=== PATIENT | female | born 1990 | race Caucasian/White ===

== ENCOUNTER → 2016-03-28 | Outpatient (CLI) | payer BC | END | disposition home or self-care (01) | LOC: C.PAPS 10:38 | PROVIDERS: ATTEND Obstetrics & Gynecology | DX: Z01.419 Encounter for gynecological examination (general) (routine) without abnormal findings (principal) ==

== ENCOUNTER → 2016-04-13 | Outpatient (CLI) | payer BC ==
--- NOTE | 2016-04-13 14:23 | DIAGNOSTIC IMAGING REPORT ---
Limited ultrasound <14 WKS SINGLE CLINICAL HISTORY: THREATENED ,CRAMPING/6WKS PG pain. Cramping. TECHNIQUE: Ultrasound COMPARISON STUDY: None FINDINGS: Uterus measures 7.8 cm in maximum dimension. No intrauterine is identified. Gestational sac measurements approximate a of 5 weeks 4 days. Patient declined transvaginal evaluation. Although a yolk sac is identified, a definite pole containing a Jorge could not be confirmed. This may be secondary to the very early gestational age. Right ovary contains a 3.6 cm corpus luteum cyst. The left ovary measures 3.5 cm. Vascular flow is confirmed bilaterally. IMPRESSION: 1. Intrauterine gestational sac with an estimated gestational age of approximately 5 weeks 4 days. 2. A heart beat could not be confirmed, although this may be secondary to the early gestational age. 3. A repeat study in 7-10 days is recommended to confirm viability. 4. 3.6 cm corpus luteum cyst right ovary Electronically signed by: Fernando Garcia M.D. 04/13/2016 2:22 PM Dictated Date/Time: 04/13/2016 2:14 PM
== END | disposition home or self-care (01) ==
LOC: C.ULTR 13:42
PROVIDERS: ATTEND Obstetrics & Gynecology
DX: O20.0 Threatened abortion (principal); Z3A.00 Weeks of gestation of pregnancy not specified; N83.201 Unspecified ovarian cyst, right side

== ENCOUNTER → 2016-05-16 | Outpatient (CLI) | payer BC ==
[2016-05-16 16:50] LABS: BASO % 0.2 %; BASO ABS # 0.01 K/uL (0-0.2); COMPLETE YES; EOS % 0.5 %; HEMATOCRIT 35.4 % (37-47); IG% 0.2 %; LYMPH % 33.8 %; LYMPH ABS # 2.18 K/uL (1.2-3.4); MEAN CELL VOLUME 85.1 fL (80-100); MEAN CORPUSCULAR HEMOGLOBIN 28.8 pg (25-34); MEAN CORPUSCULAR HGB CONC 33.9 g/dl (32-36); MEAN PLATELET VOLUME 11.3 fL (7.4-10.4); MONO % 9.9 %; NEUT % 55.4 %; PLATELET COUNT 296 K/uL (130-400); RED BLOOD COUNT 4.16 M/uL (4.2-5.4); WHITE BLOOD COUNT 6.45 K/uL (4.8-10.8)
[2016-05-16 17:38] LABS: URINE APPEARANCE CLEAR (CLEAR); URINE BILIRUBIN NEG (NEG); URINE COLOR YELLOW; URINE EPITHELIAL CELL AUTO >30 /lpf (0-5); URINE NITRITE NEG (NEG); URINE SPECIFIC GRAVITY 1.017 (1.000-1.030); UROBILINOGEN NEG (NEG)
[2016-05-16 17:49] LABS: MANUAL MICROSCOPIC REQUIRED? NO; REVIEW REQ? NO
[2016-05-19 03:29] LABS: VARICELLA ZOS VIR IGG VALUE <0.91 INDEX
== END | disposition home or self-care (01) ==
LOC: C.LAB1850 15:54
PROVIDERS: ATTEND Obstetrics & Gynecology
DX: O09.299 Supervision of pregnancy with other poor reproductive or obstetric history, unspecified trimester (principal)

== ENCOUNTER → 2016-05-16 | Outpatient (CLI) | payer BC ==
[2016-05-19 01:46] LABS: CHLAMYDIA TRACH RNA*** NOT DETECTED (NOT DETECTED); GC (NEIS GONORRHOEAE)RNA** NOT DETECTED (NOT DETECTED)
== END ==
LOC: C.LABSPEC 17:31
PROVIDERS: ATTEND Obstetrics & Gynecology
DX: O09.299 Supervision of pregnancy with other poor reproductive or obstetric history, unspecified trimester (principal)

== ENCOUNTER → 2016-06-26 | Outpatient (CLI) | payer BC ==
[2016-06-26 18:06] LABS: GTGD 50 Grams
== END | disposition home or self-care (01) ==
LOC: C.LAB1850 16:13
PROVIDERS: ATTEND Obstetrics & Gynecology
DX: Z34.02 Encounter for supervision of normal first pregnancy, second trimester (principal)

== ENCOUNTER → 2016-09-25 | Outpatient (CLI) | payer BC ==
[2016-09-25 14:44] LABS: GTGD 50 Grams
[2016-09-25 14:45] LABS: HEMATOCRIT 33.2 % (37-47)
[2016-09-25 16:17] LABS: URINE APPEARANCE CLEAR (CLEAR); URINE BILIRUBIN NEG (NEG); URINE COLOR YELLOW; URINE EPITHELIAL CELL AUTO 20-30 /lpf (0-5); URINE NITRITE NEG (NEG); URINE PH 5.5 (4.5-7.5); URINE SPECIFIC GRAVITY 1.012 (1.000-1.030); UROBILINOGEN NEG (NEG)
[2016-09-25 16:21] LABS: MANUAL MICROSCOPIC REQUIRED? NO; REVIEW REQ? NO
== END | disposition home or self-care (01) ==
LOC: C.LAB1850 12:40
PROVIDERS: ATTEND Obstetrics & Gynecology
DX: O09.299 Supervision of pregnancy with other poor reproductive or obstetric history, unspecified trimester (principal); Z3A.00 Weeks of gestation of pregnancy not specified

== ENCOUNTER 2016-12-09 04:12 | Inpatient (IN) | payer BC ==
[~2016-12-09] VITALS: Ht 165.1 cm; Wt 85.0 kg
[2016-12-09] MEDS ORDERED: LACTATED RINGER'S 1000ML 1,000 ML IV PRN (04:18)
[2016-12-09] MEDS ORDERED: PENICILLIN G POTASSIUM IV 6 MU in DEXTROSE 5% 250ML 250 ML IV ONE (04:30)
[2016-12-09 04:58] LABS: HEMATOCRIT 33.6 % (37-47); MEAN CELL VOLUME 81.8 fL (80-100); MEAN CORPUSCULAR HEMOGLOBIN 26.8 pg (25-34); MEAN CORPUSCULAR HGB CONC 32.7 g/dl (32-36); MEAN PLATELET VOLUME 10.9 fL (7.4-10.4); PLATELET COUNT 246 K/uL (130-400); RED BLOOD COUNT 4.11 M/uL (4.2-5.4); WHITE BLOOD COUNT 12.92 K/uL (4.8-10.8)
[2016-12-09] MEDS ORDERED: BUPIVACAINE 0.25% 30 ML VIAL ONE (05:09)
[2016-12-09] MEDS ORDERED: EpHEDrine SULFATE INJ 50 MG/ML AMP ONE (05:09)
[2016-12-09] MEDS ORDERED: FENTANYL CITRATE INJ 50 MCG/1 ML 2 ML VIAL ONE (05:10)
[2016-12-09] MEDS ORDERED: FENTANYL 2MCG/ML ROPIV 1.25MG/ML 100ML BAG EPI ONE (05:10)
[2016-12-09] MEDS ORDERED: LACTATED RINGER'S 1000ML 500 ML IV PRN ×2 (06:02→12:55)
[2016-12-09] MEDS ORDERED: NALOXONE HCL INJ 1 MG in SODIUM CHLORIDE 0.9% 1000ML 1,000 ML IV PRN ×4 (06:02)
[2016-12-09] MEDS ORDERED: NALOXONE HCL INJ 0.4 MG/1 ML VIAL/CARP IV PRN (06:15)
[2016-12-09] MEDS ORDERED: ONDANSETRON INJ 2 MG/ML 2 ML VIAL IV PRN (06:15)
[2016-12-09] MEDS ORDERED: FENTANYL 2MCG/ML ROPIV 1.25MG/ML 100ML BAG EPI PRN (06:15)
[2016-12-09] MEDS ORDERED: DiphenhydrAMINE HCL 50 MG/ML VIAL IV PRN (06:15)
[2016-12-09] MEDS ORDERED: PROMETHAZINE HCL INJ 25 MG in SODIUM CHLORIDE 0.9% 50ML 50 ML IV PRN (06:15)
[2016-12-09] MEDS ORDERED: EpHEDrine SULFATE INJ 50 MG/ML AMP IV PRN (06:15)
[2016-12-09] MEDS ORDERED: NALBUPHINE HCL INJ 10 MG/ML AMP IV PRN (06:15)
[2016-12-09] MEDS: LACTATED RINGER'S 1000ML 1,000 ML IV SCH ×2 (06:42→13:25)
[2016-12-09 06:48] VITALS: Ht 165.1 cm; Wt 85.0 kg
[2016-12-09] MEDS: PENICILLIN G POTASSIUM IV 3 MU in DEXTROSE 5% 100ML 100 ML IV PRN ×2 (08:42→12:44)
[2016-12-09] MEDS ORDERED: OXYTOCIN 30 UNITS/500ML NSS IV PRN ×2 (13:00→15:15)
[2016-12-09] MEDS ORDERED: OXYTOCIN 30 UNITS/500ML NSS IV ONE (13:19)
[2016-12-09] MEDS ORDERED: DIPHTHERIA/TETANUS/PERTUSSIS 0.5 ML SYR/VIAL IM. ONE (15:15)
[2016-12-09] MEDS ORDERED: SUPERCREAM 0.870 % 15GM JAR EXT PRN (15:15)
[2016-12-09] MEDS ORDERED: BENZOCAINE 20% AER SPR 82.5 GM CAN EXT PRN (15:15)
[2016-12-09] MEDS ORDERED: ACETAMINOPHEN/CODEINE 300/30MG TAB PO PRN ×2 (15:15)
[2016-12-09] MEDS ORDERED: LANOLIN OINT EXT PRN ×2 (15:15)
[2016-12-09] MEDS ORDERED: OXYCODONE/ACETAMINOPHEN 5-325 TAB PO PRN (15:15)
[2016-12-09] MEDS ORDERED: ACETAMINOPHEN 325 MG TAB PO PRN (15:15)
[2016-12-09] MEDS ORDERED: HYDROCORTISONE ACETATE 25 MG SUPP PR PRN (15:15)
--- NOTE | 2016-12-09 17:10 | Anesthesia Procedure Note ---
Anesthesia Epidural Removal Nt Date & Time Dec 09, 2016 at 17:10 Vital Signs Pain Intensity: 0.0 Notes Mental Status: alert / awake / arousable, participated in evaluation Nausea / Vomiting: adequately controlled Pain: adequately controlled Airway Patency, RR, SpO2: stable & adequate BP & HR: stable & adequate Hydration State: stable & adequate Neuraxial Anesthesia: was administered Anesthetic Complications: no major complications apparent, pt satisfied with anesthetic care Epidural: removed without complications, with tip intact
--- NOTE | 2016-12-09 19:14 | DELIVERY SUMMARY ---
DATE OF OPERATION: 12/09/2016 PREOPERATIVE DIAGNOSES: tachycardia and effort to shorten second stage. POSTOPERATIVE DIAGNOSES: tachycardia and effort to shorten second stage. PROCEDURE: Low vacuum assist vaginal delivery. SURGEON: Dr. Moya. ANESTHETIC: Epidural. ESTIMATED BLOOD LOSS: 300 mL. COMPLICATIONS: None. DISPOSITION: Stable. I had recommended vacuum intervention as she was +2 cm station, RAKESH position and there was tachycardia. I did offer to continue pushing. I had already discussed the risks of infection with the baby; we also discussed the option of . We drained her bladder and obtained approximately 100 mL of clear urine. Vacuum was then applied to the head in the usual fashion and I was able to delivery after 3 pulls and 2 total pop offs. Baby's head was delivered right mediolateral episiotomy was then performed. With this, the head was delivered. Mouth and then nares were suctioned. There was no nuchal cord. Baby was delivered by gentle traction. No excessive force used. Live vigorous male infant. Cord clamped and cut. Cord gas was obtained. Cord blood obtained. Placenta removed manually as the cord detached. Right mediolateral episiotomy repaired with 3-0 Vicryl. Rectal exam negative for sutures. Sponge and instrument counts correct. I attest to the content of the Intraoperative Record and any orders documented therein. Any exceptions are noted below. MTDD
[2016-12-09] MEDS: DOCUSATE SODIUM 100 MG CAP PO SCH (19:54)
[2016-12-09 20:00] VITALS: BP 121/82; PULSE 102; TEMP 37.8; O2SAT 100
[2016-12-09] MEDS: IBUPROFEN 600 MG TAB PO PRN (20:03)
[2016-12-10 00:05] VITALS: BP 105/70; PULSE 103; TEMP 36.7; O2SAT 99
[2016-12-10] MEDS: IBUPROFEN 600 MG TAB PO PRN ×3 (02:15→17:17)
[2016-12-10 04:10] VITALS: BP 108/71; PULSE 101; TEMP 36.8; O2SAT 99
--- NOTE | 2016-12-10 06:39 | OB/GYN Progress Note ---
FILTER CHANGING TECHNICIAN Progress Note Date of Service Dec 10, 2016. Subjective conversation w/ patient, physical exam, chart review, lab review Ambulation: ambulating normally Voiding: no voiding problems Diet Tolerance: Regular Diet Lochia: Large Feeding Type: Breast Feeding (and bottle feeding) Pain: 6-7/10 Review of Systems Constitutional: + chills, No fever Respiratory: No shortness of breath Cardiac: No chest pain Abdomen: No nausea, No vomiting Female : No dysuria Objective Vital Signs Date Time Temp Pulse Resp B/P (MAP) Pulse Ox O2 Delivery O2 Flow Rate FiO2 12/10/16 04:10 36.8 101 16 108/71 (83) 99 Room Air 12/10/16 00:05 36.7 103 20 105/70 (82) 99 Room Air 12/10/16 00:05 99 Room Air 12/09/16 20:00 100 Room Air 12/09/16 20:00 37.8 102 20 121/82 (95) 100 Room Air Physical Exam Respiratory/Chest: lungs clear, normal breath sounds Cardiovascular: regular rate, rhythm Abdomen: normal bowel sounds, non tender, soft Fundus: Firm, Relation to Umbilicus (2 FB below) Extremities: non-tender, no pedal edema Laboratory Results Last 24 Hours Test 12/10/16 06:27 Medications Current Inpatient Medications Medications (Trade) Dose Ordered Sig/Ralph Route Start Time Stop Time Status Last Admin Dose Admin Lactated Ringer's 1,000 ml @ 125 mls/hr Q8H IV 12/09/16 04:18 12/11/16 04:17 12/09/16 13:25 125 MLS/HR Lactated Ringer's 1,000 ml @ 999 mls/hr Q1H1M PRN IV 12/09/16 04:18 01/08/17 04:17 12/09/16 06:42 999 MLS/HR Penicillin G Potassium 3 mu/ Dextrose 106 ml @ 100 mls/hr Q4H PRN IV 12/09/16 04:30 12/11/16 04:29 12/09/16 12:44 100 MLS/HR Lactated Ringer's 500 ml @ 999 mls/hr Q31M PRN IV 12/09/16 12:55 01/08/17 12:54 Oxytocin (Pitocin IV) 30 units UD PRN IV 12/09/16 15:15 01/08/17 15:14 12/09/16 15:48 30 UNITS Benzocaine (Dermoplast Aero Spr) 1 appln PRN PRN EXT 12/09/16 15:15 01/08/17 15:14 12/09/16 20:02 1 APPLN Cocaine HCl (Supercream 0.870% Cr) BID PRN EXT 12/09/16 15:15 12/23/16 15:14 Hydrocortisone Acetate (Anusol Hc Supp) 25 mg BID PRN [place] 12/09/16 15:15 01/08/17 15:14 Lanolin (Lanolin Oint) PRN PRN EXT 12/09/16 15:15 01/08/17 15:14 Prenat Multivit/ [place]/Iron/Folic Ac ( Vitamin Tab) 1 tab DAILY PO 12/10/16 08:00 01/09/17 07:59 Ibuprofen (Motrin Tab) 600 mg Q4H PRN PO 12/09/16 15:15 01/08/17 15:14 12/10/16 02:15 600 MG Acetaminophen (Tylenol Tab) 650 mg Q6H PRN PO 12/09/16 15:15 01/08/17 15:14 Acetaminophen/ Codeine Phosphate (Tylenol w/ Codeine #3 Tab) 1 tab Q4H PRN PO 12/09/16 15:15 01/08/17 15:14 Acetaminophen/ Codeine Phosphate (Tylenol w/ Codeine #3 Tab) 2 tab Q4H PRN PO 12/09/16 15:15 01/08/17 15:14 Bisacodyl (Dulcolax Tab) 5 mg 20 PO 12/10/16 20:00 12/10/16 20:01 Bisacodyl (Dulcolax Supp) 10 mg DAILY PRN [place] 12/11/16 07:00 Docusate Sodium (coLACE CAP) 100 mg BID PO 12/09/16 20:00 01/08/17 19:59 12/09/16 19:54 100 MG Assessment and Plan Post- Day Number: 1 Continue Routine Care: A/P: This is a 26 y/o female, , s/p normal vaginal delivery PPD#1. She is ambulating and clinically stable. Plan: - Vitals signs are reviewed and WNL (Tmax 37.8) - Last Hgb is 11 - Blood type A+, GBS pos, Rubella Immune - Routine care - Encourage ambulation, monitor and control pain with medication as needed, continue with regular diet as tolerated and monitor lochia - Stool softeners and sitz bath recommended - Encourage breast feeding and educate about breast feeding Resident Physician Supervision Note: I interviewed and examined the patient. Discussed with Dr. Gonzalez and agree with findings and plan as documented in the note. Any exceptions or clarifications are listed here: [None] Documented By: Kishan Moya Resident Involvement: Resident Care Provided Care Provided: OB Delivery
[2016-12-10 06:47] LABS: HEMATOCRIT 28.4 % (37-47)
[2016-12-10 07:30] VITALS: BP 113/75; PULSE 97; TEMP 36.8; O2SAT 99
[2016-12-10] MEDS: DOCUSATE SODIUM 100 MG CAP PO SCH ×2 (07:45→20:07)
[2016-12-10] MEDS: PRENATAL VITAMIN TAB PO SCH (07:45)
[2016-12-10 12:40] VITALS: BP 111/72; PULSE 97; TEMP 36.5; O2SAT 98
--- NOTE | 2016-12-10 14:14 | Discharge Instructions ---
Discharge Instructions Date of Service Dec 10, 2016. Admission Reason for Admission: LABOR Discharge Discharge Diagnosis / Problem: after vaginal delivery Discharge Goals Goal(s): Routine recovery after delivery Medications Continue Dispensed Medications: supercream, dermaplast, tucks, lansinoh Activity Recommendations Activity Limitations: per Instructions/Follow-up section . Instructions / Follow-Up Instructions / Follow-Up ACTIVITY RECOMMENDATIONS: * Gradual return to full activity over the next 2-3 weeks. * No lifting - nothing heavier than baby over the next 2-3 weeks. * Do not engage in vigorous exercise, sexual activity or sports until cleared by your physician. * Do not drive or operate any motorized equipment until cleared by your physician. * You may shower/bathe daily. MEDICATIONS: For discomfort or pain, you may use Acetaminophen (Tylenol), Ibuprofen (Advil), or Naproxen (Aleve) following the package directions. For constipation you may use Colace following the package directions. BREAST CARE: If you are not breast feeding: * Wear a supportive bra 24 hours a day for one to two weeks. * Avoid stimulating your breasts and nipples as much as possible during the first few weeks after delivery. * When taking a shower, have the warm water hit your back, not breasts. * When your breasts feel full, apply ice packs. Usually three to four times a day helps ease the discomfort. * Take a mild pain medication (Tylenol / Motrin) when you are uncomfortable. If breast feeding: * Use breast milk to lubricate nipples. Lansinoh cream may be used for sore nipples. You do not need to remove cream prior to breast feeding. If using a different brand of cream, check the label for directions regarding removal of cream prior to nursing. * Wear a supportive bra. * If having problems with breasts or breast feeding, call a media consultant outside sales or your health care provider. EPISIOTOMY CARE: After delivery, if you have an episiotomy (stitches), the following steps will ease discomfort and aid healing. * For the first 24 hours after delivery, place ice packs next to your episiotomy to help reduce swelling. * After the first 24 hour-period, sitz baths, either portable or in the tub, are suggested. A shower with a shower arm sprayed over the episiotomy may be comforting. * Thelma care should be done after each voiding and bowel movement. Squirt warm water from a plastic bottle over the perineum (region of the body between the anus and urinary opening) and pat dry. * Use Dermoplast to ease discomfort. Shake container. [place] directly over the episiotomy. Place a Tucks on a clean sanitary pad next to your episiotomy. SPECIAL CARE INSTRUCTIONS: When you are discharged from the hospital, it is important for you to follow the instructions listed below: * During the first week at home, you should be able to care for yourself and your baby. In addition, the usual light household activities are encouraged. * Limit your activities to the way you feel. Do not try to clean the house or move furniture. Be sensible. * If you actively engage in sports and have done so up until the time of your delivery, you may resume these activities as soon as you feel able. This may take up to one month or even longer. Use good judgment. * Continue to take your vitamins for at least six weeks after the of your baby. * Your diet need not be limited unless you were on a special diet before your delivery. Breast-feeding mothers need around 2500 calories per day and at least 64-80 ounces of fluid per day (8 to 10 glasses). * You should eat foods from the four major food groups. Crash diets or fad diets are to be avoided. Eating lean meats, fresh fruits and vegetables, low-fat dairy products, high fiber foods and a regular exercise program, will help you get back to your pre- weight without putting your health at risk. * Constipation is sometimes a problem after delivery. Take a mild laxative as needed. If breast feeding, Milk of Magnesia is acceptable to use. You may use a suppository or Fleets enema if no episiotomy. * A daily shower or tub bath is suggested. Be sure to thoroughly and gently dry the perineum. * A bloody vaginal discharge will usually continue until around four weeks post . A small amount of bleeding may continue for as long as six weeks. Vaginal discharge changes from the bright red bleeding after delivery to pink then brownish and finally yellowish-pink before becoming white and disappearing. * Bleeding may increase with activity. Your first period may come in 4-8 weeks. If you are breast feeding, your period may be delayed even longer. * [place] (sex) can begin whenever both you and your partner feel comfortable and do not have any form of genital infection. It is recommended that you wait at least six weeks for internal and external healing to occur. If you have questions, please talk to your health care practitioner. A condom should be used to prevent infection and . * Foreplay, gentle intercourse and lubrication is very important the first several times to prevent pain. A water-based lubricant such as K-Y jelly or Astroglide may be used. * If you have RH negative blood and your baby is RH positive, you will receive RHOGAM by injection prior to discharge. The nurse will give you a card to keep with you that has the date and place that you received RHOGAM after delivery. * During your care, you had a Rubella screen done to check for the presence of rubella antibodies in your blood. If your test was negative, you will receive a Rubella vaccine prior to discharge. This vaccine may cause a fever, soreness at the injection site and flu-like symptoms. If these symptoms persist, notify your health care practitioner. is not advised for one month after a Rubella vaccine. * Verbalizes understanding of car seat law as reviewed with patient nursing. * Car Seat hand-out given and reviewed with patient by nursing. * Shaken baby information reviewed with patient by nursing. Call you doctor if: * Heavy bleeding (saturating several pads an hour) or passing clots the size of your fist. * A fever >101 degrees F (38.3 degrees C) on two occasions four hours apart and /or chills. * Unusual pain in the pelvic or vaginal areas. * "Baby Blues" lasting longer than two weeks. If you have any questions or concerns, call your health care practitioner at . FOLLOW UP VISIT: * Please call the office at to schedule a 6 week examination. It is important you keep this appointment. It is important for you to make arrangements for either yearly or twice yearly check-ups thereafter. Current Hospital Diet Patient's current hospital diet: Regular OB Diet Discharge Diet Recommended Diet: Regular Diet Pending Studies Studies pending at discharge: no Medical Emergencies . Who to Call and When: Medical Emergencies: If at any time you feel your situation is an emergency, please call 911 immediately. . Non-Emergent Contact Non-Emergency issues call your: Quality Assurance Supervisor Final . . "Provider Documentation" section prepared by Kalpesh Gonzalez. . VTE Core Measure Inpt VTE Proph given/why not?: SCD's
[2016-12-10 16:10] VITALS: BP 111/72; PULSE 97; TEMP 36.5; O2SAT 98
[2016-12-10] MEDS ORDERED: BISACODYL 5 MG TABEC PO SCH (20:00)
[2016-12-11 00:10] VITALS: BP 106/72; PULSE 98; TEMP 36.6; O2SAT 99
--- NOTE | 2016-12-11 06:46 | OB/GYN Progress Note ---
BELT LOOP MAKER Progress Note Date of Service Dec 11, 2016. Subjective conversation w/ patient, physical exam, chart review, lab review Ambulation: ambulating normally Voiding: no voiding problems Diet Tolerance: Regular Diet Lochia: Small Feeding Type: Breast Feeding Pain: 5/10 Review of Systems Constitutional: No fever, No chills Respiratory: No shortness of breath Cardiac: No chest pain Abdomen: No nausea, No vomiting Female : No dysuria Objective Vital Signs Date Time Temp Pulse Resp B/P (MAP) Pulse Ox O2 Delivery O2 Flow Rate FiO2 12/11/16 00:10 36.6 98 20 106/72 (83) 99 Room Air 12/11/16 00:10 99 Room Air 12/10/16 16:10 98 Room Air 12/10/16 16:10 36.5 97 18 111/72 (85) 98 Room Air 12/10/16 12:40 36.5 97 18 111/72 (85) 98 Room Air 12/10/16 07:30 Room Air 12/10/16 07:30 36.8 97 18 113/75 (88) 99 Room Air Physical Exam General Appearance: NO APPARENT DISTRESS Respiratory/Chest: lungs clear, normal breath sounds Cardiovascular: regular rate, rhythm, no murmur Abdomen: normal bowel sounds, non tender, soft Fundus: Firm, Relation to Umbilicus (3 FB below ) Extremities: non-tender, no pedal edema Laboratory Results Last 24 Hours Test 12/11/16 06:28 Assessment and Plan Post- Day Number: 2 Continue Routine Care: A/P: This is a 26 y/o female, , s/p [normal vaginal delivery] day 2. She is ambulating and clinically stable. Plan: - Vitals signs are reviewed and WNL (Tmax 36.8 ) - Last Hgb is 9.2 - Blood type O-, GBS neg, Rubella Immune - No signs of depression. - Routine care - Discussed resting, feeding, pain control, mastitis, control, follow up in 6 weeks and reasons to call sooner, if necessary. - Continue with pain medication as needed, and continue vitamins. - Encourage breast feeding and educate about breast feeding - Patient understands and keen for home. - Plan to discharge home Resident Physician Supervision Note: I was present with Dr. Gonzalez during the history and exam. I discussed the case with the resident and agree with the findings and plan as documented in the note. Any exceptions or clarifications are listed here: Doing well. discussed uterine cramps, aware of meds to help. Denies constipation prior to delivery but worried about having BM. Reviewed stool softeners to help. D/c home, f/u 6 wk pp check. Documented By: Meron Gunn Resident Involvement: Resident Care Provided Care Provided: OB Delivery
[2016-12-11] MEDS ORDERED: BISACODYL 10 MG SUPP PR PRN (07:00)
[2016-12-11 07:04] LABS: HEMATOCRIT 29.6 % (37-47); MEAN CORPUSCULAR HGB CONC 31.8 g/dl (32-36); MEAN PLATELET VOLUME 10.8 fL (7.4-10.4); PLATELET COUNT 246 K/uL (130-400); RED BLOOD COUNT 3.61 M/uL (4.2-5.4); WHITE BLOOD COUNT 10.72 K/uL (4.8-10.8)
[2016-12-11] MEDS: PRENATAL VITAMIN TAB PO SCH (07:53)
[2016-12-11 07:55] VITALS: BP 109/75; PULSE 98; TEMP 36.7; O2SAT 97
[2016-12-11] MEDS: DOCUSATE SODIUM 100 MG CAP PO SCH (07:59)
[2016-12-11 08:32] VITALS: BP 109/75; PULSE 95; TEMP 36.7; O2SAT 97
[2016-12-11 08:36] VITALS: O2SAT 97
[2016-12-11 12:00] VITALS: BP_DIAS 75; PULSE 95; TEMP 36.7
--- NOTE | 2016-12-13 08:41 | DISCHARGE SUMMARY ---
HISTORY OF PRESENT ILLNESS: Vanita had a vacuum assisted vaginal delivery on 12/09/2016. By 12/11/2016 she met discharge criteria and was sent home. At that time she was ambulating well, tolerating an oral diet, had minimal pain or bleeding and no extremity pain. PHYSICAL EXAMINATION: VITAL SIGNS: Stable. She was afebrile. ABDOMINAL EXAMINATION: Revealed a nontender, firm uterus. EXTREMITIES: Negative. PELVIC: Minimal vaginal bleeding. IMPRESSION AND PLAN: Vacuum assisted vaginal delivery, uncomplicated. Hemoglobin 9.4 on discharge. Told to follow up in the office for the usual care.
== END 2016-12-11 13:45 | disposition home or self-care (01) | DRG 775 ==
LOC: C.LD 04:12 → C.OPB 04:12 → C.LD 04:21 → C.OPB 04:21 → C.OBG 18:55
PROVIDERS: ADMIT Obstetrics & Gynecology; ATTEND Obstetrics & Gynecology
PROC: 0W8NXZZ Division of Female Perineum, External Approach (ICD-10-PCS; principal; 2016-12-09)
PROC: 10D07Z6 Extraction of Products of Conception, Vacuum, Via Natural or Artificial Opening (ICD-10-PCS; principal; 2016-12-09)
DX: O76 Abnormality in fetal heart rate and rhythm complicating labor and delivery (principal); O99.824 Streptococcus B carrier state complicating childbirth; O63.1 Prolonged second stage (of labor); Z37.0 Single live birth; Z3A.40 40 weeks gestation of pregnancy

== ENCOUNTER 2020-01-04 14:05 | Inpatient (IN) ==
[2020-01-04] MEDS: LACTATED RINGER'S 1,000 ML IV PRN ×2 (14:35→15:38)
[2020-01-04] MEDS ORDERED: BUPIVACAINE 0.25% 30 ML VIAL ONE (14:37)
[2020-01-04] MEDS ORDERED: ePHEDrine sulfate 50 MG/ML AMP ONE (14:37)
[2020-01-04] MEDS ORDERED: SODIUM CHLORIDE 0.9% INJ 10 ML VIAL ONE (14:37)
[2020-01-04] MEDS ORDERED: fentaNYL citrate 100 MCG/2 ML VIAL ONE (14:38)
--- NOTE | 2020-01-04 14:38 | Labor Progress Brief Note ---
Date of Service January 04, 2020 Subjective Patient is 29yo whose was c/b late to care - she did not present until 20wk and says this is because the pandemic made doing so impossible. Prior baby VAVD here with Nita. Presents with contractions since early this morning, no LOF, no VB, good FM. She is screaming and crying on arrival and not able to allow RN to examine cervix due to patient intolerance of positioning supine or having cervical check. Assessment & Plan (1) Normal labor and delivery: Patient hoping for epidural; attempting to get IV bolus and CBC fast enough to allow placement prior to delivery. Physical Exam Physical Exam: FHT Cat 1 [place] Q2 Cv 8/90/0 intact membranes Results & Data ([facility]) Vital Signs (Past 12 Hours) Vital Signs Pulse BP 01/04/20 14:10 78 146/87 H Coding Level of Care Code None Diagnoses Normal labor and delivery O80
[2020-01-04] MEDS ORDERED: fentaNYL 2MCG/ML ROPIVACAINE 1.25MG/ML 100 ML BAG EPI ONE (14:39)
--- NOTE | 2020-01-04 14:43 | Anesthesiology Consultation ---
Date of Service January 04, 2020 History Allergies Allergy/AdvReac Type Severity Reaction Status Date / Time No Known Allergies Allergy Verified 12/30/19 13:36 Medications Home Medications Medication Instructions Recorded Confirmed Last Taken PNV cmb#95-ferrous fumarate-FA 1 tab PO DAILY 12/07/17 12/30/19 Unknown [] cholecalciferol (vitamin D3) PO 12/15/19 12/30/19 Unknown ferrous sulfate PO 12/15/19 12/30/19 Unknown Past Medical History Medical History Encounter for anatomic survey History of spontaneous Normal labor and delivery Positive test Vaginal itching Past Family History Family History Father Myocardial infarction Diabetes Mother Thyroid cancer Uterine cancer, Onset Age: 40 Other No pertinent family history in first degree relatives Denies family history of Ovarian cancer Breast cancer Colorectal cancer Past Surgical History Surgical History S/P tooth extraction Social History Smoking Status: Never smoker Hx Alcohol Use: No Hx Substance Use: No Physical Exam Vital Signs Last Vital Signs Pulse 78 01/04/20 14:10 BP 146/87 H 01/04/20 14:10 Testing Laboratory Results 12/29 Covid negative
--- NOTE | 2020-01-04 14:44 | History & Physical Report ---
Date of Service January 04, 2020 Assessment & Plan (1) : Vanita is a 29 y/o female currently at 40-4/7 WGA with an MELISSA 12/31/19 as determined by LMP who presents in active labor. Fetus Cat I. - Epidural requested by patient -- anesthesia consulted. Attempt to achieve prior to delivery. CBC ordered, IV bolus. - GBS negative / COVID19 negative - 12/29 - Anticipate Present on Admission?: Yes History of Present Illness Primary Care Provider: Kevin Weston MD Vanita is a 29 y/o female currently at 40-4/7 WGA with an MELISSA 12/31/19 as determined by LMP who is here for a labor check in the setting of painful contractions. Her was complicated by a late presentation to care (at 20 weeks) and a post-date . Did require VAVD for last delivery. Endorses contractions; good movement; no fluid loss; no bloody show Had regular appointments with OB. Labs: (Date 08/17/19 ) Blood type: A+ Antibody screen: negative H.6 Hct: 35.1 WBC: 8.69 Plt: 316 Rubella: immune VDRL/RPR: NR Gonorrhea: neg Chlamydia: neg HIV: neg HbSAg: neg GBS: neg SARS-CoV-2 (COVID19) PCR: Negative (12/29) Other screens: cff-DNA: low risk (see scanned documents) CF: neg SMA: neg Allergies Allergy/AdvReac Type Severity Reaction Status Date / Time No Known Allergies Allergy Verified 12/30/19 13:36 Home Medications Medication Instructions Recorded Confirmed Type PNV cmb#95-ferrous fumarate-FA 1 tab PO DAILY 12/07/17 12/30/19 History [] cholecalciferol (vitamin D3) PO 12/15/19 12/30/19 History ferrous sulfate PO 12/15/19 12/30/19 History Patient History Medical History Encounter for anatomic survey History of spontaneous Normal labor and delivery Positive test Vaginal itching Surgical History S/P tooth extraction Family History Father Myocardial infarction Diabetes Mother Thyroid cancer Uterine cancer, Onset Age: 40 Other No pertinent family history in first degree relatives Denies family history of Ovarian cancer Breast cancer Colorectal cancer Social History Smoking Status: Never smoker Hx Alcohol Use: No Hx Substance Use: No Preferred Language: Frisian marital status: marital status details: Praful Del (34) [phone] Current Living Situation: Spouse Current Living Situation Comment: lives with spouse and child, no pets Feels Safe at Home: Yes Review of Systems no fever, no chills and no sweats denies headache no dyspnea no chest pain, no dyspnea, no dyspnea at rest and no palpitations no dysuria no breast pain Physical Exam Physical Exam: General: Alert, oriented. Does appear to be uncomfortable 2/2 pain. Cardiac: Regular rate and rhythm, no murmurs/rubs/gallops. Respiratory: Clear to auscultation bilaterally a/p, no wheezes/rales/rhonchi. No increased work of breathing. Symmetrical chest rise. No respiratory distress. Pelvic: Dilation 8 cm; Effacement 90; Station 0; intact membranes -- per Dr. Richardson (1428hr) Lower Extremities: No lower extremity edema or swelling. No deep calf pain. Dhruv's negative bilaterally Results & Data ([facility]) Vital Signs (Past 12 Hours) Vital Signs Pulse BP 01/04/20 14:10 78 146/87 H Code Status & VTE Plan VTE Prophylaxis Plan VTE Prophylaxis will be ordered: Yes Monitoring External Monitor Baseline: 150s Variability: moderate Accelerations: 15x15 Decelerations: none appreciated Tocodynamometer Frequency: q2-4 Resident Activity Tracking Resident Involvement: Resident Care Provided Care Provided: Adult Hospital Medicine and OB Delivery
[2020-01-04 14:59] LABS: Hematocrit (blood only) 39.4 % (37-47); Hemoglobin 13.1 g/dL (12.0-16.0); Mean Corpuscular Hemoglobin 28.9 pg (25-34); Mean Corpuscular Hgb Conc 33.2 g/dL (32-36); Mean Corpuscular Volume 86.8 fL (80-100); Platelet Count 200 K/uL (130-400); RDW Coefficient of Variation 17.4 % (11.5-14.5); RDW Standard Deviation 54.6 fL (36.4-46.3); Red Blood Count 4.54 M/uL (4.2-5.4); White Blood Count 9.25 K/uL (4.8-10.8)
[2020-01-04] MEDS ORDERED: diphenhydrAMINE 50 MG/ML VIAL IV PRN (15:32)
[2020-01-04] MEDS ORDERED: NALOXONE HCL 1 MG in SODIUM CHLORIDE 0.9% 1000ML 1,000 ML IV PRN (15:32)
[2020-01-04] MEDS ORDERED: ePHEDrine sulfate 50 MG/ML AMP IV PRN (15:32)
[2020-01-04] MEDS ORDERED: NALOXONE HCL 0.4 MG/1 ML VIAL/CARP IV PRN (15:32)
[2020-01-04] MEDS ORDERED: fentaNYL 2MCG/ML ROPIVACAINE 1.25MG/ML 100 ML BAG EPI PRN (15:32)
[2020-01-04] MEDS ORDERED: ONDANSETRON INJ 2 MG/ML 2 ML VIAL IV PRN (15:32)
--- NOTE | 2020-01-04 18:00 | Labor Progress Brief Note ---
Date of Service January 04, 2020 Subjective Patient got comfortable with epidural. No urge to push. FOB wants to leave to get food; was discouraged given her stage of labor but patient also states she wants to be "left in peace" for a while. Does not agree to push right now even though RN exam showed her to be completely dilated. Assessment & Plan (1) Normal labor and delivery: Patient declining to begin second stage of labor at this time. Peanut ball replaced by RN and she will rest for about an hour unless she feels urge to push sooner. Admission and Anticipated Discharge Date Admission Date: January 04, 2020 Physical Exam Physical Exam: FHT Cat 1 with occasional early decels [place] Q2-4 Cervix per RN /0 Results & Data ([facility]) Vital Signs (Past 12 Hours) Vital Signs Temp Pulse Resp BP Pulse Ox 01/04/20 17:56 71 100 01/04/20 17:51 76 100 01/04/20 17:49 72 122/68 01/04/20 17:46 76 100 01/04/20 17:41 74 100 01/04/20 17:36 89 98 01/04/20 17:34 75 132/80 01/04/20 17:31 92 H 100 01/04/20 17:26 75 100 01/04/20 17:21 79 99 01/04/20 17:20 69 127/72 01/04/20 17:16 75 100 01/04/20 17:11 73 100 01/04/20 17:06 76 100 01/04/20 17:04 97.5 F L 72 20 126/70 01/04/20 17:01 78 100 01/04/20 16:56 77 100 01/04/20 16:51 73 100 01/04/20 16:48 70 128/72 01/04/20 16:46 73 100 01/04/20 16:41 75 100 01/04/20 16:36 69 100 01/04/20 16:33 71 122/73 01/04/20 16:31 79 100 01/04/20 16:26 77 100 01/04/20 16:23 80 18 130/75 01/04/20 16:21 93 H 100 01/04/20 16:16 78 100 01/04/20 16:11 76 100 01/04/20 16:06 91 H 100 01/04/20 16:01 83 100 01/04/20 15:59 76 18 119/70 01/04/20 15:57 72 18 118/68 01/04/20 15:56 74 100 01/04/20 15:55 73 18 118/69 01/04/20 15:53 82 18 125/79 01/04/20 15:51 79 123/65 100 01/04/20 15:49 98.2 F 75 18 123/66 01/04/20 15:47 76 16 116/58 L 01/04/20 15:46 80 16 122/67 100 01/04/20 15:41 80 16 131/60 100 01/04/20 15:39 82 16 135/61 01/04/20 15:37 106 H 16 130/72 01/04/20 15:35 81 131/74 01/04/20 15:33 98.2 F 75 20 126/67 01/04/20 15:30 109 H 18 127/65 01/04/20 15:27 88 18 124/70 01/04/20 15:25 90 18 123/72 01/04/20 15:23 86 136/64 01/04/20 15:21 92 H 140/84 01/04/20 15:19 86 142/74 H 01/04/20 15:18 80 161/92 H 01/04/20 15:14 72 136/80 01/04/20 15:02 81 100 01/04/20 14:57 70 99 01/04/20 14:52 84 100 01/04/20 14:47 83 99 01/04/20 14:42 75 99 01/04/20 14:10 97.9 F 78 20 146/87 H Coding Level of Care Code None Diagnoses Normal labor and delivery O80
[2020-01-04] MEDS: OXYTOCIN 30 UNITS/500 ML BAG IV PRN ×2 (20:38→21:50)
--- NOTE | 2020-01-04 20:52 | Delivery Summary ---
Vaginal Delivery Summary Date of Service January 04, 2020 Vaginal Delivery Summary DIAGNOSES: 1. Mariee intrauterine at 40w4d gestation. 2. Spontaneous onset of labor. 3. Group B Streptococcus Neg. PROCEDURE: Spontaneous vaginal delivery and repair of Second degree laceration. SURGEON: Adeola Richardson MD. AMUSEMENT MACHINE MECHANIC: None. ESTIMATED BLOOD LOSS: 350 mL. COMPLICATIONS: None. PLACENTA: Spontaneous and intact with a 3-vessel cord. DISPOSITION: Stable to labor and delivery. DESCRIPTION: The patient pushed well and brought the head to in DOP position. The 's head was allowed to deliver with contraction force and no further active pushing, with the perineum protected during this time. The shoulders delivered easily with a maternal pushing effort. There was no nuchal cord. The left shoulder was anterior. The shoulders and body delivered without any difficulty, and the infant was placed on the maternal abdomen. It was vigorous and moving all extremities. The cord was doubly clamped by the MD and then cut quickly so the infant could be moved to the warmer for suction, given the thick meconium. The placenta delivered spontaneously and was noted to be intact and with a 3VC. The cervix, vagina and perineum were examined and were found to have a second degree laceration which was repaired in the usual manner with vicryl suture, incluing a crown stitch to rebuild the perineal body. The fundus was firm and lochia minimal immediately after delivery. [facility] Vaginal Delivery Charge Vaginal Delivery Codes: 57748 global code for the antepartum, delivery, and post-
--- NOTE | 2020-01-04 21:18 | Anesthesia Procedure Note ---
Date of Service January 04, 2020 Anesthesia Post Epidural Note Vital Signs Vital Signs: Temp Pulse Resp BP Pulse Ox 36.7 C 98 H 18 118/60 99 01/04/20 20:34 01/04/20 21:16 01/04/20 20:34 01/04/20 21:16 01/04/20 20:41 Pain Intensity Bilateral Abdomen: Pain Intensity: 0 Notes Mental Status: alert / awake / arousable and participated in evaluation Nausea / Vomiting: adequately controlled Pain: adequately controlled Airway Patency, RR, SpO2: stable & adequate BP & HR: stable & adequate Hydration State: stable & adequate Neuraxial Anesthesia: was administered and sensory block is resolving Anesthetic Complications: no major complications apparent Epidural: Removed without complications and With tip intact
[2020-01-04] MEDS ORDERED: oxyCODONE/ACETAMINOPHEN 5mg/325mg TAB PO PRN (21:38)
[2020-01-04] MEDS ORDERED: HYDROCORTISONE ACETATE 25 MG SUPP PR PRN (21:38)
[2020-01-04] MEDS ORDERED: DIPHTHERIA/TETANUS/PERTUSSIS 0.5 ML SYR/VIAL IM ONE (21:38)
[2020-01-04] MEDS ORDERED: ACETAMINOPHEN 325 MG TAB PO PRN (21:38)
[2020-01-04] MEDS ORDERED: BENZOCAINE 20% AER SPR 82.5 GM CAN EXT PRN (21:38)
[2020-01-04] MEDS ORDERED: SUPERCREAM 0.870% 15 GM JAR EXT PRN (21:38)
[2020-01-04] MEDS: DOCUSATE SODIUM 100 MG CAP PO SCH (22:31)
[2020-01-05] MEDS: IBUPROFEN 600 MG TAB PO PRN ×4 (04:04→20:32)
--- NOTE | 2020-01-05 04:56 | Obstetrical Progress Note ---
Date of Service <Aric Tucker MD - Last Filed: 01/05/20 06:20> January 05, 2020 Assessment & Plan <Aric Tucker MD - Last Filed: 01/05/20 06:20> (1) Normal labor and delivery: Vanita is a 29 y/o female who is now PPD #1 following at 40- 4/7. - Feels well today. Eating well, voiding well, ambulating well. - Pain well controlled with ibuprofen 600mg Q4H PRN. - Routine PPD care -- OOB and ambulation throughout today - Can trial Rosas removal today (placed in setting of urinary retention) - After discharge will have [address] Richardson Subjective <Aric Tucker MD - Last Filed: 01/05/20 06:20> Vanita is a 29 y/o female who is now PPD #1 following at 40-4/7. Reports feeling well overall this morning. Some abdominal cramping with pain well managed on analgesics. Did experience some urinary retention yesterday following delivery, so has a Rosas in place that is draining yellow urine. Tolerating meals well and able to ambulate some. Not yet passing gas / BM. Does endorse some clots to size of golf ball after delivery which have decreased in size overnight. Breast feeding. Review of Systems Denies fever, chills, sweats Denies shortness of breath, difficulty breathing, chest pain, palpitations, chest pressure. Denies breast pain. Denies dysuria. Denies headache or changes in vision. Physical Exam <Aric Tucker MD - Last Filed: 01/05/20 06:20> General: Alert, oriented. No acute distress. Cardiac: Regular rate and rhythm, no murmurs/rubs/gallops. Respiratory: Clear to auscultation bilaterally a/p, no wheezes/rales/rhonchi. No increased work of breathing. Symmetrical chest rise. No respiratory distress. Abdomen: Soft, nontender, nondistended. Bowel sounds present. Uterus: Uterine fundus firm, palpable 2 cm below umbilicus. Lower Extremities: No lower extremity edema or swelling. No deep calf pain. Dhruv's negative bilaterally. Results & Data ([facility]) <Aric Tucker MD - Last Filed: 01/05/20 06:20> Vital Signs (Past 12 Hours) Vital Signs Temp Pulse Pulse Resp BP BP Pulse Ox 01/05/20 02:20 36.7 C 86 18 125/82 100 01/04/20 23:35 36.7 C 86 20 126/77 100 01/04/20 22:46 83 114/65 01/04/20 22:31 78 120/69 01/04/20 22:16 78 112/62 01/04/20 22:01 82 103/61 01/04/20 21:46 90 113/68 01/04/20 21:31 91 H 111/60 01/04/20 21:16 98 H 118/60 01/04/20 21:15 18 01/04/20 21:01 99 H 128/61 01/04/20 21:00 18 01/04/20 20:45 36.7 C 93 H 18 137/66 01/04/20 20:41 90 99 01/04/20 20:36 96 H 99 01/04/20 20:34 36.7 C 18 01/04/20 20:31 106 H 152/75 H 98 01/04/20 20:26 110 H 99 01/04/20 20:25 104 H 90 01/04/20 20:21 107 H 100 01/04/20 20:19 106 H 89 L 01/04/20 20:17 111 H 130/73 01/04/20 20:16 115 H 100 01/04/20 20:15 18 01/04/20 20:11 120 H 99 01/04/20 20:06 84 100 01/04/20 20:01 118 H 119/76 100 01/04/20 20:00 18 01/04/20 19:56 88 100 01/04/20 19:51 92 H 100 01/04/20 19:46 81 129/69 100 01/04/20 19:41 73 99 01/04/20 19:36 88 100 01/04/20 19:32 75 129/71 01/04/20 19:31 76 99 01/04/20 19:30 18 01/04/20 19:26 76 100 01/04/20 19:21 79 100 01/04/20 19:17 136/76 11/16/20 19:16 80 100 01/04/20 19:11 82 100 01/04/20 19:08 36.8 C 18 01/04/20 19:06 92 H 100 01/04/20 19:01 77 100 01/04/20 19:00 84 148/78 H 01/04/20 18:56 85 100 01/04/20 18:51 84 100 01/04/20 18:48 75 141/73 H 01/04/20 18:46 91 H 100 01/04/20 18:41 77 100 01/04/20 18:36 77 100 01/04/20 18:33 74 144/70 H 01/04/20 18:31 81 100 01/04/20 18:26 86 100 01/04/20 18:21 76 100 01/04/20 18:19 82 20 145/87 H 01/04/20 18:16 74 100 01/04/20 18:11 76 100 01/04/20 18:06 74 100 01/04/20 18:03 71 138/71 01/04/20 18:01 75 100 01/04/20 18:00 18 01/04/20 17:56 71 100 01/04/20 17:51 76 100 01/04/20 17:49 72 122/68 01/04/20 17:46 76 100 01/04/20 17:41 74 100 01/04/20 17:36 89 98 01/04/20 17:34 75 18 132/80 01/04/20 17:31 92 H 100 01/04/20 17:26 75 100 01/04/20 17:21 79 99 01/04/20 17:20 69 127/72 01/04/20 17:16 75 100 01/04/20 17:11 73 100 01/04/20 17:06 76 100 01/04/20 17:04 36.4 C L 72 20 126/70 01/04/20 17:01 78 100 <Adeola Richardson MD - Last Filed: 01/05/20 06:38> Co-Signing Physician Notes I have reviewed the resident's note and examined the patient myself, and agree with the note above. The rosas was placed early hours this morning due to inability to void; despite not having been in retention very long, 2L of urine are reported to have drained immediately. The uterus has been firm and lochia minimal since that time. Would recommend TOV tomorrow morning due to extreme bladder volume / distention overnight. Resident Activity Tracking <Aric Tucker MD - Last Filed: 01/05/20 06:20> Resident Involvement: Resident Care Provided Care Provided: Adult [facility] Medicine and OB Delivery
[2020-01-05 07:36] LABS: Hemoglobin 10.5 g/dL (12.0-16.0); Mean Corpuscular Hemoglobin 28.7 pg (25-34); Mean Corpuscular Hgb Conc 32.8 g/dL (32-36); Mean Corpuscular Volume 87.4 fL (80-100); Mean Platelet Volume 12.3 fL (7.4-10.4); Platelet Count 171 K/uL (130-400); RDW Coefficient of Variation 17.5 % (11.5-14.5); RDW Standard Deviation 54.6 fL (36.4-46.3); Red Blood Count 3.66 M/uL (4.2-5.4); White Blood Count 10.24 K/uL (4.8-10.8)
[2020-01-05] MEDS: DOCUSATE SODIUM 100 MG CAP PO SCH ×2 (08:37→20:32)
[2020-01-05] MEDS: PRENATAL VITAMIN 1 TAB PO SCH (08:37)
--- NOTE | 2020-01-06 06:52 | Obstetrical Progress Note ---
Date of Service <Aric Tucker MD - Last Filed: 01/06/20 06:52> January 06, 2020 Assessment & Plan <Aric Tucker MD - Last Filed: 01/06/20 06:52> (1) Normal labor and delivery: Vanita is a 29 y/o female who is now PPD #2 following at 40- 4/7. - Feels well today. Eating well, voiding well, ambulating well. - Pain well controlled with ibuprofen 600mg Q4H PRN. - Routine PPD care -- OOB and ambulation throughout today - Lewis removal late last night, will attempt trial at voiding this AM - Anticipate d/c as long as good ambulation, no problems with voiding - After discharge will have [address] Richardson Subjective <Aric Tucker MD - Last Filed: 01/06/20 06:52> Vanita is a 29 y/o female who is now PPD #2 following at 40-4/7 weeks. Reports feeling well overall this morning. Endorses minimal abdominal cramping pain well managed on analgesics. Lewis catheter removed last night and has yet to urinate this AM, but does endorse feeling an urge. Tolerating meals well. Has not yet ambulated d/t Lewis. Endorses passing gas but not yet bowel movements. Some persistent lochia with some improvement this morning. Breast feeding. Review of Systems Denies fever, chills, sweats Denies shortness of breath, difficulty breathing, chest pain, palpitations, chest pressure. Denies breast pain. Denies dysuria. Denies headache or changes in vision. Physical Exam <Aric Tucker MD - Last Filed: 01/06/20 06:52> General: Alert, oriented. No acute distress. Cardiac: Regular rate and rhythm, no murmurs/rubs/gallops. Respiratory: Clear to auscultation bilaterally a/p, no wheezes/rales/rhonchi. No increased work of breathing. Symmetrical chest rise. No respiratory distress. Abdomen: Soft, nontender, nondistended. Bowel sounds present. Uterus: Uterine fundus firm, palpable 2 cm below umbilicus. Lower Extremities: No lower extremity edema or swelling. No deep calf pain. Dhruv's negative bilaterally. Results & Data ([facility]) <Aric Tucker MD - Last Filed: 01/06/20 06:52> Vital Signs (Past 12 Hours) Vital Signs Temp Pulse Resp BP Pulse Ox 01/06/20 00:02 36.4 C L 84 18 135/88 98 <Meron Gunn MD, FACOG - Last Filed: 01/06/20 09:22> Co-Signing Physician Notes Resident Physician Supervision Note: I was present with Dr. Tucker during the history and exam. I discussed the case with the resident and agree with the findings and plan as documented in the note. Any exceptions or clarifications are listed here: doing well, does feel she voided well. She is nursing. No pain issues, although her bottom is sore, so moves slowly. Joshua was out early today and did void. plan d/c home, f/u 6wks, instructions reviewed. Documented By: Meron Gunn MD, FACOG Resident Activity Tracking <Aric Tucker MD - Last Filed: 01/06/20 06:52> Resident Involvement: Resident Care Provided Care Provided: Adult Hospital Medicine and OB Delivery
[2020-01-06 07:07] LABS: Hematocrit (blood only) 37.8 % (37-47); Hemoglobin 12.2 g/dL (12.0-16.0)
[2020-01-06] MEDS: PRENATAL VITAMIN 1 TAB PO SCH (09:25)
[2020-01-06] MEDS: IBUPROFEN 600 MG TAB PO PRN (09:25)
[2020-01-06] MEDS: DOCUSATE SODIUM 100 MG CAP PO SCH (09:25)
== END 2020-01-06 13:00 | disposition home or self-care (01) | DRG 807 ==
LOC: OPB 14:05 → 4S1 14:07 → 4S2 23:05